=== PATIENT | female | born 2000 | race Asian ===

== ENCOUNTER 2024-07-26 01:56 | Emergency (ER) | payer SELFPAY ==
[~2024-07-26] VITALS: Ht 154.9 cm; Wt 82.0 kg
[2024-07-26] MEDS ORDERED: PROPOFOL 200MG/20ML VIAL IV ONE (02:30)
[2024-07-26] MEDS: ONDANSETRON HCL 4MG/2ML INJ IV ONE (02:33)
[2024-07-26] MEDS: FENTANYL CITRATE/PF 50MCG/ML 2ML VIAL IV ONE (02:33)
[2024-07-26 02:50] VITALS: O2SAT 99
[2024-07-26 02:52] VITALS: TEMP 37.16964
[2024-07-26 03:30] VITALS: BP 113/72; PULSE 82; RESP 16; O2SAT 100
[2024-07-26] MEDS ORDERED: IBUP-2029 MT (03:42)
== END 2024-07-26 03:59 | disposition home or self-care (01) ==
LOC: ER 01:56
DX: S43.004A Unspecified dislocation of right shoulder joint, initial encounter (principal); X58.XXXA Exposure to other specified factors, initial encounter; Y93.89 Activity, other specified; Y92.89 Other specified places as the place of occurrence of the external cause; Y99.8 Other external cause status
CPT/HCPCS: 73030; 23650; 96374; 99152; 99285; J3010; J2405; J2704; Z7610 ×2